=== PATIENT | female | born 1990 | race Two or more races ===

== ENCOUNTER 2022-10-12 15:20 | Emergency (ER) | payer OTHER ==
[~2022-10-12] VITALS: Ht 167.6 cm; Wt 106.6 kg
[2022-10-12] MEDS ORDERED: XANAX0.25 MG (16:21)
== END 2022-10-12 18:15 | disposition home or self-care (01) ==
LOC: ER 15:20
DX: K52.9 Noninfective gastroenteritis and colitis, unspecified (principal); Z20.822 Contact with and (suspected) exposure to COVID-19